=== PATIENT | male | born 1935 | race African-American/Black ===

== ENCOUNTER 2021-07-05 11:05 | Emergency (ER) | payer MEDICARE, SELFPAY ==
[~2021-07-05] VITALS: Ht 190.5 cm; Wt 83.9 kg
--- NOTE | 2021-07-05 11:05 | NUR ---
Placed in room 1 . Placed on varnish supervisor, blood pressure machine and pulse oximeter. To gown for exam. Side rails up. Report given to MURIEL Giraldo.
[2021-07-05 11:12] VITALS: BP_SYST 170
--- NOTE | 2021-07-05 11:14 | NUR ---
Pt nonverbal. His right arm is contracted and pt is not able to move right leg. Signs of stroke are acknowledged. facial droop present on left side of face.
[2021-07-05] MEDS ORDERED: SUCCINYLCHOLINE CHLORIDE 20 MG/ML(QUELICIN) IVP ONE (11:15)
[2021-07-05] MEDS ORDERED: ETOMIDATE 20 MG/ 10 ML VIAL (AMIDATE) IVP ONE (11:15)
[2021-07-05] MEDS ORDERED: IOHEXOL 350 mgI/mL, 150 ML INFUS..BTL IV ONE (11:35)
--- NOTE | 2021-07-05 11:35 | NUR ---
Pt intubated. CT with contrast ordered. Consent was not able to obtained from pt so 2 nurses signed consent. Pt has 2og IV placed on his left Ac.
--- NOTE | 2021-07-05 11:36 | NUR ---
ER plhysician and RT at bedside.
[2021-07-05 11:51] LABS: BASOPHILS % (AUTO) 0.3 % (0.0-2.0); HEMATOCRIT 41.3 % (36-54); HEMOGLOBIN 13.7 g/dL (14.0-18.0); LYMPHOCYTES # (AUTO) 0.5 K/uL (1.0-5.5); LYMPHOCYTES % (AUTO) 6.1 % (20.5-51.5); MEAN CORPUSCULAR HEMOGLOBIN 27 pg (27-31); MEAN CORPUSCULAR HGB CONC 33 % (32-36); MEAN CORPUSCULAR VOLUME 82 fL (79.0-98.0); MONOCYTES # (AUTO) 0.4 K/uL (0.0-1.0); NEUTROPHILS # (AUTO) 7.9 K/uL (1.8-7.7); NEUTROPHILS % (AUTO) 88.6 % (40.0-70.0); PLATELET COUNT (AUTO) 121 K/uL (130-430); RED BLOOD CELL COUNT(AUTO) 5.07 MIL/uL (4.2-6.2); RED CELL DISTRIBUTION WIDTH 14.6 % (9.0-15.0); WHITE BLOOD COUNT (AUTO) 8.9 K/uL (4.8-10.8)
[2021-07-05 12:04] LABS: ANION GAP 5 (5-15); CALCIUM 8.6 mg/dL (8.4-11.0); CHLORIDE 99 mmol/L (98-107); CREATININE 1.02 mg/dL (0.55-1.30); GLUCOSE 124 mg/dL (70-99); POTASSIUM 4.8 mmol/L (3.5-5.1); SODIUM SERUM 134 mmol/L (136-145); UREA NITROGEN, BLOOD 17 mg/dL (8-21)
[2021-07-05 12:19] LABS: ALANINE AMINOTRANSFERASE 37 U/L (12-78); ALBUMIN 3.7 g/dL (3.4-4.8); ASPARTATE AMINOTRANSFERASE 37 U/L (10-37); FREE T4 (FREE THYROXINE) 1.1 ng/dl (0.8-1.5); THYROID STIMULATING HORMONE 0.83 uIu/mL (0.36-3.74); TOTAL BILIRUBIN 0.4 mg/dL (0.0-1.0)
[2021-07-05 12:26] LABS: ALCOHOL, BLOOD < 3 mg/dL (<10)
[2021-07-05] MEDS: niCARdipine 25 MG in D5W 240 ML IV PRN ×2 (12:34→13:38)
--- NOTE | 2021-07-05 12:43 | NUR ---
NG Tube placed. VSS.
--- NOTE | 2021-07-05 13:38 | NUR ---
Started pt on Nicadipine 5mg/hr, 50ml/hr. HR at 75 and BP is at 160/72. Will continue to monitor. Chest x-ray being done at bedside.
--- NOTE | 2021-07-05 13:44 | NUR ---
covid swab dropped off to lab.
[2021-07-05 14:35] LABS: INR 1.1 (0.80-1.20); PROTHROMBIN TIME 11.6 SECS (9.5-12.5)
--- NOTE | 2021-07-05 15:17 | NUR ---
# 16 FR Farfan catheter with use of sterile technique. Immediate return of 1250 cc bloody cloudy urine noted. Bedside drainage bag placed below level of bladder. Urine sample collected and sent to lab. Pt tolerated procedure well Patient unable to toilet self.
[2021-07-05 15:44] VITALS: BP_SYST 129
--- NOTE | 2021-07-05 15:48 | NUR ---
Report given to clay LLAMAS at [facility] and also to ACLS team transport. Pt's vitals are stable. IV intact. Farfan in place. NG tube in place. Skin intact. Daughter at bedside. Packet ready and given to transport.
[2021-07-05 15:57] LABS: BILIRUBIN,URINE NEGATIVE (NEGATIVE); BLOOD, URINE 3+ (NEGATIVE); CLARITY/URINE CLOUDY (CLEAR); COLOR,URINE RED (YELLOW); GLUCOSE,URINE 2+ (NEGATIVE); KETONES,URINE 1+ (NEGATIVE); LEUKOCYTE ESTERASE ,URINE NEGATIVE (NEGATIVE); PH,URINE 6.5 (5.0-8.0); PROTEIN URINE 1+ (NEGATIVE); UROBILINOGEN,URINE 0.2 (0.2-1.0)
--- NOTE | 2021-07-05 16:00 | NUR ---
Patient to be transferred to [place]. Is being transferred due to higher level of care. Receiving facility has accepting physician and available space. ER physician has signed transfer form. Patient or responsible alliance party has agreed to transfer and signed form. Patient belongings inventoried and will be sent with patient. Copy of nursing notes, lab reports, EKG, Physicians Orders and X-rays to be sent with patient. Report called to Nayely at receiving facility. Receiving physician is Dr. Pride. [facility] has been called for transfer. ETA is 15.
[2021-07-05 16:17] LABS: BARBITURATE, URINE NEGATIVE (NEG <=200); BENZODIAZEPINE, URINE NEGATIVE (NEG <=150); CANNABINOID, URINE NEGATIVE (NEG <=50); COCAINE, URINE NEGATIVE (NEG <=150); METHAMPHETAMINES SCREEN,URINE NEGATIVE (NEG <=500); OPIATE, URINE NEGATIVE (NEG <=100); PHENCYCLIDINE SCREEN,URINE NEGATIVE (NEG <=25); UR TRICYCLIC ANTIDEPRESSANTS NEGATIVE (NEG <=300); URINE AMPHETAMINE NEGATIVE (NEG <=500); URINE METHADONE NEGATIVE (NEG <=200); URINE OXYCODONE SCREEN NEGATIVE (NEG <=100); URINE PROPOXYPHENE SCREEN NEGATIVE (NEG <=300)
[2021-07-05 16:58] LABS: BACTERIA,URINE FEW /HPF (None Seen); NITRITE, URINE NEGATIVE (NEGATIVE); RBC,URINE >100 /HPF (0-3)
[2021-07-05 16:59] LABS: MUCUS,URINE None Seen /LPF (None Seen)
== END 2021-07-05 15:44 ==
LOC: SED 11:05
DX: I62.9 Nontraumatic intracranial hemorrhage, unspecified (principal); G93.40 Encephalopathy, unspecified; Z20.822 Contact with and (suspected) exposure to COVID-19
CPT/HCPCS: 31500; 36415; 70450; 71045; 76376; 80053; 80307; 81000; 82803; 84439; 84443; 84484; 85025; 85610; 85730; 87426; 93005; 94002; 94640; 99291; G0482; J7060; Q9967; 99285